=== PATIENT | female | born 1955 | race Caucasian/White ===

== ENCOUNTER 2018-12-04 05:42 | Emergency (ER) | payer BC, OTHER ==
[~2018-12-04] VITALS: Ht 152.4 cm; Wt 87.1 kg
[2018-12-04 08:02] VITALS: BP 138/68
== END 2018-12-04 08:02 | disposition home or self-care (01) ==
LOC: ED 05:42
DX: I10 Essential (primary) hypertension (principal); E11.9 Type 2 diabetes mellitus without complications; M79.7 Fibromyalgia; M19.90 Unspecified osteoarthritis, unspecified site; Z88.1 Allergy status to other antibiotic agents; S53.401A Unspecified sprain of right elbow, initial encounter; W01.0XXA Fall on same level from slipping, tripping and stumbling without subsequent striking against object, initial encounter; Y93.89 Activity, other specified; Y92.89 Other specified places as the place of occurrence of the external cause; Y99.8 Other external cause status
CPT/HCPCS: J1885